=== PATIENT | female | born 1955 ===

== ENCOUNTER 2016-03-31 09:32 | Emergency (ER) | payer BC, OTHER ==
[2016-03-31] MEDS ORDERED: Fluorescein Sodium TOPICAL* 1 MG TEST ONE (09:59)
[2016-03-31] MEDS ORDERED: BSS OPTH.SOL* BTL ONE (10:00)
[2016-03-31] MEDS ORDERED: Tetracaine 0.5% OPTH.SOL 4 ML* 1 DROP BTL ONE (10:00)
--- NOTE | 2016-03-31 10:08 | UC ---
Eye Complaint HPI - HPI Summary HPI Summary: pt states her right eye was scratched by her dog 03/28/16. States it does not hurt, but it is still red, "not getting better". - History of Current Complaint Chief Complaint: UCEye Stated Complaint: EYE SCRATCHED BY DOG Time Seen by Provider: 03/31/16 09:58 Hx Obtained From: Patient Onset/Duration: Gradual Onset, Lasting Days - 3, Still Present Timing: Constant Severity Initially: Moderate Severity Currently: Moderate Pain Intensity: 0 Pain Scale Used: 0-10 Numeric Location of Injury: Conjunctiva - scratched 3 days ago Aggravating Factor(s): Nothing Alleviating Factor(s): Nothing Associated Signs And Symptoms: Negative: Drainage (Clear) - Allergies/Home Medications Allergies/Adverse Reactions: Allergies Allergy/AdvReac Type Severity Reaction Status Date / Time No Known Allergies Allergy Verified 03/31/16 09:57 Home Medications: Home Medications Ibuprofen TAB* [Motrin TAB* 800 MG] 800 mg PO Q6H PRN 03/31/16 [History Confirmed 03/31/16] PMH/Surg Hx/FS Hx/Imm Hx - Surgical History Surgical History: Yes Surgery Procedure, Year, and Place: tubal - Social History Alcohol Use: Occasionally Substance Use Type: None Smoking Status (MU): Heavy Every Day Tobacco Smoker Amount Used/How Often: 1/2 ppd Length of Time of Smoking/Using Tobacco: started age 15 Physical Exam Vital Signs: Initial Vital Signs Temp 98.8 F 03/31/16 09:50 Pulse 73 03/31/16 09:50 Resp 14 03/31/16 09:50 BP 164/76 03/31/16 09:50 no pulse ox obtained as pt had very long, false nails and her complaint is non respiratory, so will not attempt pulse ox. elevated BP noted Vital Signs Reviewed: Yes Discharge - Discharge Plan Condition: Stable Disposition: HOME Prescriptions: Tobramycin 0.3% OPHTH.TRES* 2 drop RIGHT EYE Q4H #1 btl Patient Education Materials: Subconjunctival Hemorrhage (ED), Corneal Abrasion (ED) Referrals: Camille Ellis MD [Medical Doctor] - Blake Ahn MD [Medical Doctor] - 2 Days (if no improvement, call this acetylene torch operator for follow up )
== END 2016-03-31 10:34 | disposition home or self-care (01) ==
LOC: UCCORT 09:32
DX: S05.01XA Injury of conjunctiva and corneal abrasion without foreign body, right eye, initial encounter (principal); X58.XXXA Exposure to other specified factors, initial encounter; Y93.9 Activity, unspecified; Y92.9 Unspecified place or not applicable; H11.31 Conjunctival hemorrhage, right eye; F17.210 Nicotine dependence, cigarettes, uncomplicated
CPT/HCPCS: 99202; A9270-GY; G0463